=== PATIENT | male | born 1990 | race Hispanic/Latino ===

== ENCOUNTER 2019-01-21 17:19 | Emergency (ER) | payer OTHER | END 2019-01-21 18:56 | disposition home or self-care (01) | LOC: EDH 17:19 | DX: H10.9 Unspecified conjunctivitis (principal) ==

== ENCOUNTER 2019-02-06 19:35 | Emergency (ER) | payer OTHER ==
[2019-02-06] MEDS ORDERED: ONDANSETRON ODT 4 MG TAB ONE (20:14)
[2019-02-06] MEDS ORDERED: SODIUM CHLORIDE 0.9% 1000ML 1,000 ML IV ONE (21:21)
[2019-02-06] MEDS ORDERED: ONDANSETRON HCL 4 MG/2 ML VIAL ONE (21:21)
[2019-02-06 21:28] LABS: BASOPHILS % (AUTO) 0.8 % (0.0-5.0); EOSINOPHILS % (AUTO) 0.2 % (0.0-8.0); HEMATOCRIT 44.1 % (42-54); LYMPHOCYTES % (AUTO) 9.4 % (21.0-51.0); MEAN CORPUSCULAR HEMOGLOBIN 29.6 pg (27.0-33.0); MEAN CORPUSCULAR HGB CONC 34.7 g/dL (32.0-36.0); MEAN CORPUSCULAR VOLUME 85.5 fL (79-99); MONOCYTES % (AUTO) 4.8 % (3.0-13.0); NEUTROPHILS % (AUTO) 84.8 % (40.0-77.0); PLATELET COUNT (AUTO) 185 K/uL (130-400); RED BLOOD CELL COUNT(AUTO) 5.15 MIL/uL (4.50-6.20); RED CELL DISTRIBUTION WIDTH 13.9 % (11.0-15.5); WHITE BLOOD COUNT (AUTO) 9.2 K/uL (4.8-10.8)
[2019-02-06 21:35] LABS: POTASSIUM 3.5 mmol/L (3.5-5.1)
[2019-02-06 21:40] LABS: ALBUMIN 3.7 g/dL (3.5-5.0); BILIRUBIN,TOTAL 0.6 mg/dL (0.2-1.0); TOTAL PROTEIN, SERUM 7.9 g/dL (6.0-8.3)
== END 2019-02-06 22:19 | disposition home or self-care (01) ==
LOC: EDH 19:35
DX: B34.9 Viral infection, unspecified (principal)
CPT/HCPCS: 36415; 80053; 85025; 87804 ×2; 96361; 96374; 99284; J2405; J7030

== ENCOUNTER 2020-08-26 16:15 | Emergency (ER) | payer OTHER ==
[2020-08-26] MEDS ORDERED: ACETAMINOPHEN 325 MG TAB ONE (16:44)
[2020-08-26] MEDS ORDERED: ONDANSETRON ODT 4 MG TAB ONE (16:44)
== END 2020-08-26 17:59 | disposition home or self-care (01) ==
LOC: EDH 16:15
DX: B33.8 Other specified viral diseases (principal); Z20.828 Contact with and (suspected) exposure to other viral communicable diseases; Z72.0 Tobacco use
CPT/HCPCS: 87426; 99283; U0003

== ENCOUNTER 2021-06-15 13:53 | Emergency (ER) | payer OTHER ==
[~2021-06-15] VITALS: Ht 182.9 cm; Wt 154.2 kg
[2021-06-15 14:24] VITALS: BP 140/88
[2021-06-15] MEDS ORDERED: CEFTRIAXONE 1G VIAL IM STA (15:42)
[2021-06-15] MEDS ORDERED: DEXAMETHASONE SOD PHOSPHATE 4 MG/ML 1ML VIAL IM STA (15:42)
[2021-06-15] MEDS ORDERED: DEXAMETHASONE SOD PHOSPHATE 4 MG/ML 1ML VIAL ONE (16:16)
[2021-06-15] MEDS ORDERED: CEFTRIAXONE 1G VIAL ONE (16:16)
[2021-06-15] MEDS ORDERED: METH4TAB3 PO (16:53)
[2021-06-15] MEDS ORDERED: AZIT1PAC PO (16:53)
[2021-06-15] MEDS ORDERED: ALBU2.5V2 IH (16:53)
== END 2021-06-15 17:05 | disposition home or self-care (01) ==
LOC: EDH 13:53
DX: J40 Bronchitis, not specified as acute or chronic (principal); Z20.822 Contact with and (suspected) exposure to COVID-19; Z79.899 Other long term (current) drug therapy; Z98.890 Other specified postprocedural states
CPT/HCPCS: 71045; 87635; 96372 ×2; 99284; C9803; J0696; J1100

== ENCOUNTER 2023-02-26 11:25 | Emergency (ER) | payer OTHER ==
[~2023-02-26] VITALS: Ht 185.4 cm; Wt 149.7 kg
[~2023-02-26 11:25] MED LIST: ALBU2.5V2 IH; AZIT1PAC PO; METH4TAB3 PO
[2023-02-26 12:23] LABS: BASOPHILS % (AUTO) 0.7 % (0.0-5.0); EOSINOPHILS % (AUTO) 1.5 % (0.0-8.0); HEMATOCRIT 41.9 % (42-54); LYMPHOCYTES % (AUTO) 13.7 % (21.0-51.0); MEAN CORPUSCULAR HGB CONC 33.7 g/dL (32.0-36.0); MONOCYTES % (AUTO) 7.6 % (3.0-13.0); NEUTROPHILS % (AUTO) 75.7 % (40.0-77.0); PLATELET COUNT (AUTO) 215 K/uL (130-400); RED BLOOD CELL COUNT(AUTO) 4.87 MIL/uL (4.50-6.20); RED CELL DISTRIBUTION WIDTH 13.1 % (11.0-15.5); WHITE BLOOD COUNT (AUTO) 11.4 K/uL (4.8-10.8)
[2023-02-26 12:34] LABS: CREATININE 1.1 mg/dL (0.5-1.5); POTASSIUM 4.3 mmol/L (3.5-5.1)
[2023-02-26 12:44] LABS: ALBUMIN 3.2 g/dL (3.5-5.0); TOTAL PROTEIN, SERUM 7.8 g/dL (6.0-8.3)
[2023-02-26 13:16] LABS: APPEARANCE,URINE CLEAR (CLEAR); BILIRUBIN,URINE NEGATIVE (NEGATIVE); COLOR,URINE YELLOW (YELLOW); GLUCOSE, URINE (UA) >=1000 mg/dL (NEGATIVE); KETONES,URINE 5 mg/dL (NEGATIVE); LEUKOCYTE ESTERASE ,URINE NEGATIVE Leu/uL (NEGATIVE); NITRATE,URINE NEGATIVE (NEGATIVE); PH,URINE 5.5 (5.0-8.0); PROTEIN,URINE 20 mg/dL (NEGATIVE); UROBILINOGEN,URINE 0.2 mg/dL (0.2-1.0)
[2023-02-26 13:19] LABS: BACTERIA,URINE RARE /HPF (None Seen); MUCUS,URINE RARE LPF (None Seen); OTHER CASTS, URINE 1 /LPF (None Seen); SQUAMOUS EPITHELIAL CELL,UR RARE /HPF (0-2)
[2023-02-26] MEDS ORDERED: CLINDAMYCIN IVPB 600MG/50ML 50 ML IV SCH ×2 (13:30→22:00)
[2023-02-26] MEDS ORDERED: CLINDAMYCIN IVPB 900MG/50ML 50 ML IV SCH (14:00)
[2023-02-26 14:41] VITALS: BP 139/87
[2023-02-26] MEDS ORDERED: CLIN-141 PO (15:19)
== END 2023-02-26 15:26 | disposition home or self-care (01) ==
LOC: EDH 11:25
DX: N49.2 Inflammatory disorders of scrotum (principal); L73.2 Hidradenitis suppurativa; R73.9 Hyperglycemia, unspecified; R03.0 Elevated blood-pressure reading, without diagnosis of hypertension; J45.909 Unspecified asthma, uncomplicated; Z90.89 Acquired absence of other organs; Z79.899 Other long term (current) drug therapy
CPT/HCPCS: 99285; 96365; 80053; 85025; 81001; 36415; 76870; J3490

== ENCOUNTER 2024-09-14 13:06 | Emergency (ER) | payer SELFPAY ==
[~2024-09-14] VITALS: Ht 182.9 cm; Wt 137.9 kg
[~2024-09-14 13:06] MED LIST changes: -AZIT1PAC PO; +AZIT1PAC15 PO; +CLIN-141 PO
--- NOTE | 2024-09-14 13:22 | ERN ---
ED Note History of Present Illness Stated Complaint: HYPERTENSION, DIZZY, ANXIETY, FACIAL NUMBNESS Chief Complaint: Hypertension Time Seen by MD: 13:12 Dictation: 43-YEAR-OLD MALE COMING IN TODAY WITH COMPLAINTS OF HAVING FACIAL TINGLING TO THE LEFT FRONTAL AND BILATERAL MAXILLARY SINUSES, HYPERTENSION AND CHEST PRESSURE TO THE LEFT ANTERIOR CHEST ONSET TODAY. STATES HE HAS BEEN FEELING THIS WAY FOR ABOUT A WEEK HOWEVER IT HAS GOTTEN WORSE TODAY, CHECKED HIS BLOOD PRESSURE AND A MACHINE AT A LOCAL STORE WAS IN THE [address]. PATIENT STATES HE HAS BEEN TOLD IN THE PAST AND EMERGENCY ROOMS HE HAS PREDIABETIC AND HYPERTENSIVE HOWEVER NO PRIMARY CARE DOCTOR. NO NAUSEA NO VOMITING, NEUROLOGICALLY INTACT. Allergies: Coded Allergies: No Known Allergies (Unverified Allergy, Unknown, 02/06/19) Home Meds Active Scripts Clonidine HCl (Clonidine HCl) 0.1 Mg Tablet, 0.1 MG PO BID for 30 Days, #60 TAB Prov:GISELA AQUINO NP 09/14/24 Clindamycin HCl (Clindamycin HCl) 300 Mg Capsule, 1 CAP PO QID for 10 Days, #40 CAP 0 Refills Prov:NAKUL FONTANA MD 02/26/23 Azithromycin (Zithromax) 1 Gm Packet, 1 GM PO AD, #1 PKT Prov:TEE FIELD NP 06/15/21 Methylprednisolone (Medrol) 4 Mg Tab.ds.pk, 4 MG PO AD, #1 PACK Prov:TEE FIELD NP 06/15/21 Albuterol Sulfate (Albuterol Sulfate) 2.5 Mg/3 Ml Vial.neb, 2.5 MG IH [id number], #30 INH 1 Refill Prov:TEE FIELD NP 06/15/21 Past Medical History Past Medical History: Anxiety, Asthma, High Cholesterol Surgical History: Tonsillectomy Surgical History Other: ADENOECTOMY, EAR TUBES, NASAL RN Note Reviewed/Agreed w/PFSH: Yes Review of System Dictation CONSTITUTIONAL: NEGATIVE EXCEPT FOR HPI HEAD/FACE: NEGATIVE EXCEPT FOR HPI SINUS PRESSURE TINGLING TO BILATERAL MAXILLARY AND LEFT FRONTAL SINUS EENT: NEGATIVE EXCEPT FOR HPI RESPIRATORY: NEGATIVE EXCEPT FOR HPI LEFT CHEST PRESSURE GASTROINTESTINAL/ABDOMINAL: NEGATIVE EXCEPT FOR HPI GENITOURINARY: NEGATIVE EXCEPT FOR HPI MUSCULOSKELETAL: NEGATIVE EXCEPT FOR HPI INTEGUMENTARY: NEGATIVE EXCEPT FOR HPI NUMBNESS AND TINGLING THROUGHOUT NEUROLOGICAL/PSYCH: NEGATIVE EXCEPT FOR HPI HEMATOLOGIC/LYMPHATIC: NEGATIVE EXCEPT FOR HPI ALL SYSTEMS NEGATIVE, EXCEPT NOTED ABOVE. 13 POINT REVIEW OF SYSTEMS ASSESSED AND ALL NEGATIVE EXCEPT FOR ABOVE. Initial Vital Sign VS Vital Signs Date Time Temp Pulse Resp B/P (MAP) Pulse Ox O2 Delivery O2 Flow Rate FiO2 09/14/24 13:12 98.1 98 16 176/116 98 Room Air 0 09/14/24 13:38 21 Physical Exam Dictation VITAL SIGNS REVIEWED GENERAL APPEARANCE: ALERT, ORIENTED X 3, NO ACUTE DISTRESS, WELL DEVELOPED, NOURISHED. MORBIDLY OBESE HEAD AND FACE: NON-TRAUMATIC. EYES: PERRL, PINK CONJUNCTIVAS, EYELID NO TRAUMA, ANTERIOR CHAMBER WITH ARCUS SENILIS. EARS: PINNAS INTACT AND NO SIGNS OF TRAUMA OR ERYTHEMA EAR CANALS CLEAR AND NO DISCHARGE TM NO ERYTHEMA NOSE: NO DISCHARGE, NO BLEEDING. OROPHARYNX: MOUTH NORMAL, TONGUE PINK, PHARYNX CLEAR,NO ERYTHEMA, TONSILS NO EXUDATES, NO ABSCESSES NOTED, MUCOUS ME [place] MOIST NECK: SUPPLE, NON-TENDER, NO THYROMEGALY, NO MASSES, NO JVD, NO BRUITS BREAST:DEFERRED CHEST:NO TENDERNESS, NO CREPITUS, NO PARADOXICAL MOVEMENT, NO RETRACTIONS LUNGS:CLEAR, WELL-VENTILATED, SYMMETRIC, NO RALES, NO WHEEZING, NO RHONCHI, NO STRIDOR, GOOD BREATH SOUNDS BILATERALLY HEART: REGULAR RATE, REGULAR RHYTHM, NO MURMUR, NO GALLOPS VASCULAR: NO PERIPHERAL EDEMA, ABDOMEN: SOFT, POSITIVE BOWEL SOUNDS, NONDISTENDED, NO GUARDING, NONTENDER, NO REBOUND, NO MASSES NO HEPATOMEGALY, NO SPLENOMEGALY, NO HOGAN'S SIGN, NO HERNIAS. RECTAL: DEFERRED GENITAL: DEFERRED NEUROLOGICAL: NORMAL SPEECH, MOTOR FUNCTION INTACT, SENSORY FUNCTION INTACT NIH IS 0 MUSCULOSKELETAL: NECK NONTENDER, FULL RANGE OF MOTION, BACK NONTENDER, FULL RANGE OF MOTION, EXTREMITIES: NONTENDER, FULL RANGE OF MOTION SKIN: COLOR PINK, DRY, NO TURGOR, NO RASH, NO LACERATIONS, NO ABRASIONS, NO CONTUSIONS. LYMPHATIC: DEFERRED Results (Laboratory/Radiology) Laboratory/Radiology Laboratory Tests Test 09/14/24 13:20 09/14/24 13:43 Urine Color STRAW (YELLOW) Urine Appearance CLEAR (CLEAR) Urine pH 6.5 (5.0-8.0) Urine Specific [place] 1.002 (1.001-1.031) Urine Protein NEGATIVE mg/dL (NEGATIVE) Urine Glucose (UA) NEGATIVE mg/dL (NEGATIVE) Urine Ketones NEGATIVE mg/dL (NEGATIVE) Urine Occult Blood NEGATIVE (NEGATIVE) Urine Nitrate NEGATIVE (NEGATIVE) Urine Bilirubin NEGATIVE mg/dL (NEGATIVE) Urine Urobilinogen 0.2 mg/dL (0.2-1.0) Urine Leukocyte Esterase NEGATIVE Melissa/uL Urine Opiates Screen NEGATIVE (NEGATIVE) Urine Barbiturates Screen NEGATIVE (NEGATIVE) Urine Phencyclidine Screen NEGATIVE (NEGATIVE) Urine Amphetamines Screen NEGATIVE (NEGATIVE) Urine Benzodiazepines Screen NEGATIVE (NEGATIVE) Urine Cocaine Screen NEGATIVE (NEGATIVE) Urine Marijuana (THC) Screen POSITIVE (NEGATIVE) H White Blood Count 6.6 K/uL (4.8-10.8) Red Blood Count 4.59 MIL/uL (4.50-6.20) Hemoglobin 13.9 g/dL (14.0-18.0) L Hematocrit 40.8 % (42-54) L Mean Corpuscular Volume 88.9 fL (79-99) Mean Corpuscular Hemoglobin 30.3 pg (27.0-33.0) Mean Corpuscular Hemoglobin Concent 34.1 g/dL (32.0-36.0) Red Cell Distribution Width 12.6 % (11.0-15.5) Platelet Count 178 K/uL (130-400) Mean Platelet Volume 10.9 fL (7.5-10.5) H Immature Granulocyte % (Auto) 0.3 % (0-1) Neutrophils (%) (Auto) 68.8 % (40.0-77.0) Lymphocytes (%) (Auto) 22.5 % (21.0-51.0) Monocytes (%) (Auto) 5.5 % (3.0-13.0) Eosinophils (%) (Auto) 1.5 % (0.0-8.0) Basophils (%) (Auto) 1.4 % (0.0-5.0) Neutrophils # (Auto) 4.5 K/uL (1.8-7.7) Lymphocytes # (Auto) 1.5 K/uL (1.0-4.8) Monocytes # (Auto) 0.4 K/uL (0.1-1.0) Eosinophils # (Auto) 0.10 K/uL (0.00-0.70) Basophils # (Auto) 0.09 K/uL (0.00-0.20) Absolute Immature Granulocyte (auto 0.02 K/uL (0-1) Nucleated Red Blood Cells 0.0 % (0.0-0.19) Sodium Level 138 mmol/L (136-145) Potassium Level 4.1 mmol/L (3.5-5.1) Chloride Level 103 mmol/L (101-111) Carbon Dioxide Level 30 mmol/L (21-32) Blood Urea Nitrogen 17 mg/dL (7-18) Creatinine 0.9 mg/dL (0.5-1.3) Glomerular Filtration Rate Calc 115 mL/min (>90) Random Glucose 154 mg/dL (70-105) H Total Calcium 8.8 mg/dL (8.5-10.1) Magnesium Level 2.00 mg/dL (1.80-2.40) Troponin I High Sensitivity < 4 ng/L (4-75) L Labs Reviewed?: Yes EKG: (+) NSR EKG Comment: EKG NORMAL SINUS RHYTHM/HEART RATE 77/AXIS NORMAL/NO ECTOPY ED Course ED Course Orders Procedure Category Date Status Time Cbc With Differential LAB 09/14/24 Complete 13:19 Chest 1vw RAD 09/14/24 Resulted 13:19 12 Lead Ekg Tracing- EKG 09/14/24 Resulted Technical 13:19 Magnesium LAB 09/14/24 Complete 13:19 Troponin I High LAB 09/14/24 Complete Sensitivity 13:19 Aspirin 325mg Tab PHA 09/14/24 Complete (Aspirin 325mg Tab) 13:30 Basic Metabolic Panel LAB 09/14/24 Complete 13:19 Urinalysis Profile LAB 09/14/24 Complete 13:41 Drug Screen Urine LAB 09/14/24 Complete 13:41 Clonidine Hcl 0.1 Mg PHA 09/14/24 Complete Tablet (Catapres 0. 14:30 Current Medications Medications (Trade) Dose Ordered Sig/Esme Route PRN Reason Start Time Stop Time Status Last Admin Dose Admin Aspirin (Aspirin 325mg Tab) 325 mg ONCE ONCE PO 09/14/24 13:30 09/14/24 13:31 DC 09/14/24 13:56 Clonidine HCl (CATApres 0.1 mg TAB) 0.1 mg ONCE ONCE PO 09/14/24 14:30 09/14/24 14:31 DC 09/14/24 15:03 Vital Signs Date Time Temp Pulse Resp B/P (MAP) Pulse Ox O2 Delivery O2 Flow Rate FiO2 09/14/24 15:18 98.1 80 16 141/78 98 Room Air* 0 21 09/14/24 15:03 176/116 09/14/24 13:38 98.1 98 16 176/116 98 Room Air* 0 21 09/14/24 13:12 98.1 98 16 176/116 98 Room Air 0 15:00 HOURS, REPEAT BLOOD PRESSURE AT BEDSIDE 158/91 AFTER CLONIDINE. PATIENT WILL BE DISCHARGED HOME WITH CLONIDINE 0.1 B.I.D., TOLD THAT HE IS A NEW ONSET DIABETIC WITH BLOOD SUGAR 154 AND HE NEEDS TO SEE HIS DOCTOR FOR CONFIRMATION, ALSO POSITIVE FOR MARIJUANA AND WARNED OF THE POSSIBLE FX I COULD HAVE ON A JOB THAT WAS DISCOVERED IN A URINE DRUG Medical Decision Making MDM MDM: DIFFERENTIAL DIAGNOSIS: ACS/AMI/ANXIETY/DRUG ABUSE/ELECTROLYTE IMBALANCE/DEHYDRATION/UNCONTROLLED DIABETES RATIONALE: TESTS CONSIDERED AND ORDERED SECONDARY TO SHARED DECISION MAKING INCLUDE: EKG/LABS PREVIOUS OUTSIDE RECORDS REVIEWED: OLD ER VISITS. REVIEWED RISK OF COMPLICATION AND/OR MORBIDITY OR MORTALITY OF PATIENT MANAGEMENT: NONE MEDICATIONS-PER MEDICATION RECONCILIATION NEED FOR HOSPITALIZATION: PATIENT DOES NOT MEET CRITERIA FOR HOSPITALIZATION. NO NEED FOR EMERGENCY MAJOR/MINOR SURGERY: NO THERE ARE NO SOCIAL CONCERNS WITH THIS PATIENT. MARIJUANA USER, NOT FOLLOWING UP ON SIDE OF THE HOSPITAL FOR HEALTH MANAGEMENT PRESCRIPTION DRUG MANAGEMENT CLONIDINE PRESCRIPTIONS WILL INCLUDE SYMPTOMATIC CARE PATIENT'S PRIOR EXTERNAL MEDICAL RECORDS FROM OTHER ER VISITS WERE REVIEWED BY ME INDICATED. PRIOR TESTING AND RESULTS FROM PREVIOUS VISITS WERE REVIEWED. PRIOR TESTS WERE TAKEN INTO ACCOUNT WITH MEDICAL DECISION MAKING AND RESOURCE UTILIZATION, INDEPENDENT HISTORIAN/HISTORIANS WERE USED TO OBTAIN COMPLETE MEDICAL HISTORY. I INDEPENDENTLY INTERPRETED THE TEST THAT WERE PERFORMED, RESULTS WERE REVIEWED BY ME AND CONSIDERED FINDINGS ON RADIOLOGY IF ORDERED. MEDICAL MANAGEMENT AND EXAMINATION INTERPRETATION DISCUSSIONS WERE HAD BY ME WITH OTHER QUALIFIED HEALTHCARE PROFESSIONALS INDICATED FOR THE PATIENT'S CARE. DX & DISP Disposition: Discharge Departure Impression: Primary Impression: Hyperglycemia Additional Impressions: Uncontrolled hypertension, Marijuana smoker, Obesity Condition: Stable Scripts Clonidine HCl (Clonidine HCl) 0.1 Mg Tablet 0.1 MG PO BID for 30 Days, #60 TAB Prov: GISELA AQUINO VETERINARY TECHNICIAN ASSISTANT 09/14/24 Additional Instructions: FOLLOW-UP WITH PRIMARY CARE PROVIDER IN 1 TO 2 DAYS. TAKE MEDICATIONS DIRECTED HERE IN THE EMERGENCY ROOM. OKAY TO CONTINUE HOME MEDICATIONS UNLESS OTHERWISE DISCUSSED DURING YOUR VISIT IN THE EMERGENCY ROOM TODAY. RETURN TO YOUR NEAREST EMERGENCY ROOM IF SYMPTOMS WORSEN OR IF THERE IS NO IMPROVEMENT. CALL 911 IF YOU NEED IMMEDIATE ASSISTANCE. TAKE TYLENOL OR MOTRIN [id number] NEEDED AND IF NO CONTRAINDICATIONS ARE PRESENT. INCREASE ORAL HYDRATION. A WOUND CULTURE OR URINE CULTURE WAS ORDERED HERE IN THE EMERGENCY ROOM DEPARTMENT PLEASE FOLLOW-UP WITH PRIMARY CARE PROVIDER AND ADVISE THEM TO GET REPEAT PORTS FROM OUR FACILITY. IF YOU HAD ANY JOHN WRAP/SPLINTS THAT WERE APPLIED HERE, PLEASE DO NOT REMOVE THEM UNTIL YOU SEE YOUR PRIMARY CARE OR SPECIALTY. TAKE CLONIDINE DIRECTED. SUGGEST STOP USING MARIJUANA. FOLLOW UP WITH ONE OF THE DOCTORS ON THE LIST PROVIDED YOU IN THE NEXT 2-3 DAYS FOR BLOOD PRESSURE AND EARLY DIABETIC MANAGEMENT. Referrals: SELF,REFERRAL (PCP) Time of Disposition: 15:02 I have reviewed the case, and I agree with, Diagnosis and Plan I performed a substantive portion of the visit. I have reviewed and personally made and approve the management plan that is documented in the notes by myself with TUAN/resident. I acknowledged full responsibility for the patient's management plan. GISELA AQUINO NP Sep 14, 2024 13:22 BIBI ALLEN DO Sep 14, 2024 18:14
[2024-09-14 13:52] LABS: ADD UA MICROSCOPIC NO; APPEARANCE,URINE CLEAR (CLEAR); BILIRUBIN,URINE NEGATIVE (NEGATIVE); COLOR,URINE STRAW (YELLOW); GLUCOSE, URINE (UA) NEGATIVE (NEGATIVE); KETONES,URINE NEGATIVE (NEGATIVE); LEUKOCYTE ESTERASE ,URINE NEGATIVE Leu/uL (NEGATIVE); NITRATE,URINE NEGATIVE (NEGATIVE); OCCULT BLOOD,URINE NEGATIVE (NEGATIVE); PH,URINE 6.5 (5.0-8.0); PROTEIN,URINE NEGATIVE (NEGATIVE); UROBILINOGEN,URINE 0.2 mg/dL (0.2-1.0)
[2024-09-14] MEDS: ASPIRIN 325MG TAB PO ONE (13:56)
[2024-09-14 13:59] LABS: AMPHET/METH SCREEN,URINE NEGATIVE (NEGATIVE); BARBITURATE SCREEN, URINE NEGATIVE (NEGATIVE); BENZODIAZEPINES SCREEN,URINE NEGATIVE (NEGATIVE); CANNABINOID SCREEN,URINE POSITIVE (NEGATIVE); COCAINE SCREEN,URINE NEGATIVE (NEGATIVE); OPIATE SCREEN,URINE NEGATIVE (NEGATIVE); PHENCYCLIDINE SCREEN,URINE NEGATIVE (NEGATIVE)
[2024-09-14 14:13] LABS: BASOPHILS # (AUTO) 0.09 K/uL (0.00-0.20); BASOPHILS % (AUTO) 1.4 % (0.0-5.0); EOSINOPHILS % (AUTO) 1.5 % (0.0-8.0); HEMATOCRIT 40.8 % (42-54); IMMATURE GRANULOCYTE ABSOLUTE 0.02 K/uL (0-1); LYMPHOCYTES # (AUTO) 1.5 K/uL (1.0-4.8); LYMPHOCYTES % (AUTO) 22.5 % (21.0-51.0); MEAN CORPUSCULAR HEMOGLOBIN 30.3 pg (27.0-33.0); MEAN CORPUSCULAR HGB CONC 34.1 g/dL (32.0-36.0); MEAN CORPUSCULAR VOLUME 88.9 fL (79-99); MONOCYTES # (AUTO) 0.4 K/uL (0.1-1.0); MONOCYTES % (AUTO) 5.5 % (3.0-13.0); NEUTROPHILS # (AUTO) 4.5 K/uL (1.8-7.7); NEUTROPHILS % (AUTO) 68.8 % (40.0-77.0); PLATELET COUNT (AUTO) 178 K/uL (130-400); RED BLOOD CELL COUNT(AUTO) 4.59 MIL/uL (4.50-6.20); RED CELL DISTRIBUTION WIDTH 12.6 % (11.0-15.5); WHITE BLOOD COUNT (AUTO) 6.6 K/uL (4.8-10.8)
[2024-09-14 14:18] LABS: CREATININE 0.9 mg/dL (0.5-1.3); POTASSIUM 4.1 mmol/L (3.5-5.1)
--- NOTE | 2024-09-14 14:26 | HMCIMG ---
CHEST 1VW CLINICAL HISTORY: CHEST PAIN COMPARISON: 06/15/2021 TECHNIQUE: Single view of the chest was obtained. FINDINGS: Lungs are clear. The cardiac size and mediastinum are unremarkable. The bony structures are within normal limits. IMPRESSION: No acute cardiopulmonary process identified.
[2024-09-14] MEDS: cloNIDine HCL 0.1 MG TABLET PO ONE (15:03)
[2024-09-14] MEDS ORDERED: CLON0.1T PO (15:03)
[2024-09-14 15:18] VITALS: BP 141/78; PULSE 80; RESP 16; TEMP 98.1; O2SAT 98
--- NOTE | 2024-09-14 16:17 | EKG ---
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
== END 2024-09-14 15:19 | disposition home or self-care (01) ==
LOC: EDH 13:06
DX: R73.9 Hyperglycemia, unspecified (principal); I10 Essential (primary) hypertension; E66.9 Obesity, unspecified; F12.90 Cannabis use, unspecified, uncomplicated; E78.00 Pure hypercholesterolemia, unspecified; F41.9 Anxiety disorder, unspecified; J45.909 Unspecified asthma, uncomplicated; Z79.899 Other long term (current) drug therapy; Z90.89 Acquired absence of other organs
CPT/HCPCS: 36415; 71045; 80048; 80305; 81003; 83735; 84484; 85025; 93005; 99285

== ENCOUNTER 2025-01-23 21:14 | Emergency (ER) | payer SELFPAY ==
[~2025-01-23] VITALS: Ht 182.9 cm; Wt 135.2 kg
[~2025-01-23 21:14] MED LIST changes: +CLON0.1T PO
--- NOTE | 2025-01-23 22:12 | ERN ---
ED Note History of Present Illness Stated Complaint: ALLERGIC REACTION Chief Complaint: Allergic Reaction Time Seen by MD: 22:05 Dictation: This is a 34-year-old morbidly obese male who presented to the emergency room complaining of lip swelling and allergic reaction. He denied any new medications. Has not eaten anything unusual. No change in soaps or detergents Does not have a history of any known peanut allergy or other allergies. Denied any insect bites. No history of JOHN inhibitor use. He did state that he takes losartan 100 mg daily for the blood pressure. The only new thing he did today was to kiss his CAT with his lips after which he started feeling the lip swelling and itching of the left eye. No dysphagia no tongue swelling no shortness of breath Temperature 97.3� pulse 89 respirations 20 blood pressure 153/119 with a pulse oximetry of 98% on room air Chronic medical problems include anxiety, asthma, hypercholesterolemia and hypertension Allergies: Coded Allergies: No Known Allergies (Unverified Allergy, Unknown, 02/06/19) Home Meds Active Scripts Clonidine HCl (Clonidine HCl) 0.1 Mg Tablet, 0.1 MG PO BID for 30 Days, #60 TAB Prov:GISELA AQUINO NP 09/14/24 Clindamycin HCl (Clindamycin HCl) 300 Mg Capsule, 1 CAP PO QID for 10 Days, #40 CAP 0 Refills Prov:NAKUL FONTANA MD 02/26/23 Azithromycin (Zithromax) 1 Gm Packet, 1 GM PO AD, #1 PKT Prov:TEE FIELD NP 06/15/21 Methylprednisolone (Medrol) 4 Mg Tab.ds.pk, 4 MG PO AD, #1 PACK Prov:TEE FIELD NP 06/15/21 Albuterol Sulfate (Albuterol Sulfate) 2.5 Mg/3 Ml Vial.neb, 2.5 MG IH [id number], #30 INH 1 Refill Prov:TEE FIELD NP 06/15/21 Past Medical History Past Medical History: Anxiety, Asthma, High Cholesterol, Hypertension Surgical History: Tonsillectomy Surgical History Other: ADENOECTOMY, EAR TUBES, NASAL Family History: Negative Social History: Negative RN Note Reviewed/Agreed w/PFSH: Yes Review of System Dictation Constitutional: Negative for fever,chills, and weight loss Eyes: Negative for injury, pain,redness, and discharge ENT: Negative for injury,pain or swelling positive for lip swelling Cardiovascular: Negative for chest pain, palpitations, and edema Respiratory: Negative for shortness of breath, cough, and wheezing, Abdomen/GI: Negative for abdominal pain, nausea, vomiting, diarrhea, and constipation Back: Negative for injury and pain : Negative for injury, bleeding and discharge MS/Extremity: Negative for injury and deformity Skin: Negative for rash, and discoloration Neuro: Negative for headache, weakness, numbness, tingling, and seizure Psych: Negative for suicide ideation, homicidal ideation, and hallucinations Initial Vital Sign VS Vital Signs Date Time Temp Pulse Resp B/P (MAP) Pulse Ox O2 Delivery O2 Flow Rate FiO2 01/23/25 21:16 97.3 89 20 153/119 98 Room Air 01/23/25 21:58 0 21 Physical Exam Dictation General: awake, alert, NAD morbidly obese Head/Face: Normocephalic, atraumatic Eyes: PERRL, EOMI, vision at baseline mild itching and periorbital edema of the left eye ENT: oral cavity clear, TMs clear, no signs of infection tongue is normal. Both the lips swollen Neck: Trachea midline, supple, no nuchal rigidity Cardiovascular: RRR, normal S1/S2, No MRGs, no JVD Respiratory: CTAB, no respiratory distress, No rales or wheezes Abdomen: Soft, non-tender, non-distended, normal bowel sounds, no guarding or rebound. Skin: Warm, dry, normal turgor, no rash MS/Extremity: Pulses equal, no cyanosis, neurovascular intact, FROM Neuro: COAx4, GCS 15, strength 5/5, CN 2-12 intact, normal cerebellar exam, normal gait, Psych: Normal behavior, mood, and affect normal Extremities-trace edema without any palpable cords, Homans sign is negative ED Course ED Course Orders Procedure Category Date Status Time Methylprednisolone PHA 01/23/25 Complete Succ 125mg (Solu-Medr 22:30 Famotidine 20mg Tab PHA 01/23/25 Complete (Pepcid 20mg Tab) 22:30 Current Medications Medications (Trade) Dose Ordered Sig/Esme Route PRN Reason Start Time Stop Time Status Last Admin Dose Admin Famotidine (Pepcid 20mg Tab) 20 mg ONCE ONCE PO 01/23/25 22:30 01/23/25 22:31 DC 01/23/25 22:51 Methylprednisolone Sodium Succinate (Solu-medROL 125MG) 125 mg ONCE ONCE IM 01/23/25 22:30 01/23/25 22:31 DC 01/23/25 22:51 Vital Signs Date Time Temp Pulse Resp B/P (MAP) Pulse Ox O2 Delivery O2 Flow Rate FiO2 01/23/25 21:58 97.3 89 20 153/119 98 Room Air* 0 21 01/23/25 21:16 97.3 89 20 153/119 98 Room Air We will administer medications according to the patient's complaint. Once the results are available, will review and personally interpreted the labs to rule out any acute life-threatening emergency the trach require immediate intervention and treatment. I will then re-evaluate the patient after treatment and diagnostic exams have return to determine whether the patient requires any further testing, can safely be discharged home or need further admission to hospital for additional treatment and evaluation. 11:00 p.m. upon re-evaluation the lip swelling is significantly better and vital signs remained stable except for the blood pressure which is slightly high Monitor him for another hour 12:19 a.m. clinically feels much better no tongue swelling no difficulty breathing lip swelling is improving we will discharge him on prednisone. Medical Decision Making MDM MDM: Differential diagnosis: Allergic reaction, angioedema, infection, anaphylaxis Rationale: Tests considered and ordered secondary to shared decision making include: Previous outside records reviewed: Old ER visits. Risk of complication and/or morbidity or mortality of patient management: None Medications-Per medication reconciliation Need for hospitalization: Patient does not meet criteria for hospitalization. Need for emergency major/minor surgery: No There are no social concerns with this patient. Prescription drug management Prescriptions will include symptomatic care Patient's prior external medical records from other ER visits were reviewed by me as indicated. Prior testing and results from previous visits were reviewed. Prior tests were taken into account with medical decision making and resource utilization, independent historian/historians were used to obtain complete medical history. I independently interpreted the test that were performed, results were reviewed by me and considered findings on radiology if ordered. Medical management and examination interpretation discussions were had by me with other qualified healthcare professionals as indicated for the patient's care. Problem List Problem List: (1) Allergic reaction (2) Uncontrolled hypertension (3) Marijuana smoker (4) Obesity DX & DISP Disposition: Discharge Departure Impression: Primary Impression: Allergic reaction Additional Impressions: Obesity, Hyperglycemia, Uncontrolled hypertension, Marijuana smoker Condition: Stable Scripts Prednisone (Prednisone) 50 Mg Tablet 50 MG PO DAILY for 5 Days, #5 TAB 0 Refills Prov: JOSHUA ARELLANO MD 01/24/25 Additional Instructions: Patient and the caregiver have been informed of all the diagnostic tests and the imaging conducted during the today's visit to the emergency room and has verbalized understanding of the results I have personally reviewed and interpreted all diagnostic exams performed here in the ER today as well as the vital signs documented by the nursing staff. The patient is now being discharged to home and should follow up with the primary care physician or the specialist as directed by the ER staff. Follow-up with primary care provider in 1 to 2 days. Take medications as directed here in the emergency room. Okay to continue home medications unless otherwise discussed during your visit in the emergency room today. Return to your nearest emergency room if symptoms worsen or if there is no improvement. Call 911 if you need immediate assistance. Take Tylenol or Motrin [id number] as needed and if no contraindications are present. Increase oral hydration. A wound culture or urine culture was ordered here in the emergency room department please follow-up with primary care provider and advise them to get repeat ports from our facility. If you had any John wrap/splints that were applied here, please do not remove them until you see your primary care or specialty. Referrals: SELF,REFERRAL (PCP) JOSHUA ARELLANO MD January 23, 2025 22:12
[2025-01-23] MEDS: FAMOTIDINE 20MG TAB PO ONE (22:51)
[2025-01-23] MEDS: Solu-medROL 125MG VIAL IM ONE (22:51)
[2025-01-24] MEDS ORDERED: PRED50TA2 PO (00:18)
[2025-01-24 00:53] VITALS: BP 152/87; PULSE 85; RESP 20; TEMP 97.4; O2SAT 98
== END 2025-01-24 00:54 | disposition home or self-care (01) ==
LOC: EDH 21:14
DX: T78.40XA Allergy, unspecified, initial encounter (principal); E66.9 Obesity, unspecified; I10 Essential (primary) hypertension; R73.9 Hyperglycemia, unspecified; F12.90 Cannabis use, unspecified, uncomplicated; E78.00 Pure hypercholesterolemia, unspecified; J45.909 Unspecified asthma, uncomplicated; Z79.899 Other long term (current) drug therapy; Z90.89 Acquired absence of other organs; X58.XXXA Exposure to other specified factors, initial encounter
CPT/HCPCS: 99285; 96372; J2919